=== PATIENT | female | born 1975 ===

== ENCOUNTER 2016-07-18 17:26 | Emergency (ER) | payer OTHER ==
[2016-07-18 17:26] VITALS: BMI 28.3
[2016-07-18 17:53] VITALS: TEMP 97.8
--- NOTE | 2016-07-18 18:51 | C.PDOC ---
History Of Present Illness A 40 year old female presents to the emergency room with right knee pain for 15 days. Patient reports that the pain started as she was walking down the stairs when she stepped incorrectly, shifting all of her weight to her right leg. Patient denies any other pain, injury/trauma, numbness, weakness, any sensory changes, or any other complaints. Time Seen by Provider: 07/18/16 18:11 Chief Complaint (Nursing): Lower Extremity Problem/Injury History Per: Patient History/Exam Limitations: no limitations Onset/Duration Of Symptoms: Days (15) Current Symptoms Are (Timing): Still Present Severity: Mild Recent travel outside of the [place]: No Past Medical History Reviewed: Historical Data, Nursing Documentation, Vital Signs Vital Signs: Last Vital Signs Temp 97.8 F 07/18/16 17:50 Pulse 74 07/18/16 17:50 Resp 20 07/18/16 17:50 BP 116/77 07/18/16 17:50 Pulse Ox 99 07/18/16 19:06 - Medical History PMH: Depression, HTN - [facility] Procedures INDIVID PSYCHOTHERAP NEC (09/22/13) OTHER GROUP THERAPY (09/22/13) Family History: States: Unknown Family Hx - Social History Hx Tobacco Use: No Hx Alcohol Use: No Hx Substance Use: No - Immunization History Hx Tetanus Toxoid Vaccination: No Hx Influenza Vaccination: No Hx Pneumococcal Vaccination: No Review Of Systems Except As Marked, All Systems Reviewed And Found Negative. Constitutional: Negative for: Fever, Chills Gastrointestinal: Negative for: Nausea, Vomiting, Diarrhea Musculoskeletal: Positive for: Other (Right knee pain) Neurological: Negative for: Weakness, Numbness Physical Exam - Physical Exam Appears: Well, Non-toxic Skin: Normal Color, Warm, Dry, No Rash Head: Atraumatic, Normacephalic Extremity: Normal ROM, Tenderness (Right knee lateral tenderness), No Pedal Edema, No Calf Tenderness, No Deformity, No Swelling Neurological/Psych: Oriented x3, Normal Speech, Normal Cognition, Normal Motor, Normal Sensation Gait: Steady ED Course And Treatment O2 Sat by Pulse Oximetry: 99 - Other Rad Right Knee X-ray X-Ray: Interpreted by Me, Viewed By Me Interpretation: As read by me, no fractures or dislocations. Progress Note: X-ray was negative. Patient's knee was placed in knee mobilizer and patient was given crutches. Patient given Motrin for pain. On reassessment, patient is resting comfortably, and is in no acute distress. Patient was instructed to follow up with Orthopedist in 1-2 days for further evaluation. Disposition - Disposition Referrals: Janette Overton MD [Staff Provider] - Disposition: HOME/ ROUTINE Disposition Time: 18:48 Condition: STABLE Additional Instructions: Follow up with Orthopedist within 1-2 days. Return to ED if feel worse. Prescriptions: Ibuprofen [Motrin Tab] 600 mg PO Q8 #30 tab Instructions: Knee Sprain (ED) Print Language: BENGALI - Clinical Impression Clinical Impression: Knee sprain - Scribe Statement The provider has reviewed the documentation as recorded by the Scribmarcus Carlson All medical record entries made by the Chikisibmarcus were at my direction and personally dictated by me. I have reviewed the chart and agree that the record accurately reflects my personal performance of the history, physical exam, medical decision making, and the department course for this patient. I have also personally directed, reviewed, and agree with the discharge instructions and disposition.
[2016-07-18 19:32] VITALS: BP 124/72; PULSE 75; RESP 18
--- NOTE | 2016-07-19 10:09 | RAD ---
PROCEDURE: Right Knee Radiographs. HISTORY: pain COMPARISON: None. FINDINGS: BONES: Normal. No fracture. JOINTS: Normal. No osteoarthritis. JOINT EFFUSION: None. OTHER FINDINGS: None. IMPRESSION: Normal radiographs of the right knee.
[2016-07-19 22:38] VITALS: O2SAT 99
== END 2016-07-18 19:33 | disposition home or self-care (01) ==
LOC: C.ER 17:26
DX: S83.91XA Sprain of unspecified site of right knee, initial encounter (principal); X58.XXXA Exposure to other specified factors, initial encounter

== ENCOUNTER 2017-04-29 14:39 | Emergency (ER) | payer OTHER ==
[2017-04-29 14:39] VITALS: BMI 28.3
--- NOTE | 2017-04-29 16:28 | C.PDOC ---
History Of Present Illness 41 y/o female presents to the ER complaining of subjective fever, headache, vomiting, and body aches for 3 days. Patient has had 3 episodes of vomiting as well as epigastric pain. Headache is rated as 10/10. No diarrhea, shortness of breath, or neck pain. Patient is afebrile upon arrival. Time Seen by Provider: 04/29/17 16:10 Chief Complaint (Nursing): Flu-like Symptoms History Per: Patient History/Exam Limitations: no limitations Onset/Duration Of Symptoms: Days (x3) Current Symptoms Are (Timing): Still Present Location Of Pain: Headache, Other (abdomen) Past Medical History Reviewed: Historical Data, Nursing Documentation, Vital Signs Vital Signs: Last Vital Signs Temp 98.1 F 04/29/17 15:18 Pulse 84 04/29/17 15:18 Resp 19 04/29/17 15:18 BP 119/77 04/29/17 15:18 Pulse Ox 99 04/29/17 16:37 - Medical History PMH: Depression, HTN - [facility] Procedures INDIVID PSYCHOTHERAP NEC (09/22/13) OTHER GROUP THERAPY (09/22/13) Family History: States: Unknown Family Hx - Social History Hx Tobacco Use: No Hx Alcohol Use: No Hx Substance Use: No - Immunization History Hx Tetanus Toxoid Vaccination: Yes Hx Influenza Vaccination: No Hx Pneumococcal Vaccination: No Review Of Systems Except As Marked, All Systems Reviewed And Found Negative. Constitutional: Positive for: Fever (subjective), Other (Body Aches) Respiratory: Negative for: Shortness of Breath Gastrointestinal: Positive for: Vomiting, Abdominal Pain (epigastric). Negative for: Diarrhea Musculoskeletal: Negative for: Neck Pain Neurological: Positive for: Headache Physical Exam - Physical Exam Appears: Non-toxic, No Acute Distress Skin: Normal Color, Warm, Dry Head: Atraumatic, Normacephalic Eye(s): bilateral: Normal Inspection, PERRL, EOMI Nose: Normal Oral Mucosa: Moist Throat: Normal, No Erythema, No Exudate Neck: Normal ROM, Supple Chest: Symmetrical, No Tenderness Cardiovascular: Rhythm Regular Respiratory: Normal Breath Sounds, No Accessory Muscle Use, No Wheezing Gastrointestinal/Abdominal: Soft, Tenderness (to epigastric area) Back: Normal Inspection, No Vertebral Tenderness Extremity: Bilateral: Atraumatic, Normal Color And Temperature, Normal ROM Neurological/Psych: Oriented x3, Normal Speech ED Course And Treatment O2 Sat by Pulse Oximetry: 99 (RA) Pulse Ox Interpretation: Normal Medical Decision Making Medical Decision Making: Initial Plan: * Tamiflu * Motrin Disposition Doctor Will See Patient In The: Hospital Counseled Patient/Family Regarding: Diagnosis, Need For Followup, Rx Given - Disposition Referrals: [facility] [Outside] Disposition: HOME/ ROUTINE Disposition Time: 17:13 Condition: GUARDED Prescriptions: Ibuprofen [Motrin] 600 mg PO TID #15 tab Oseltamivir [Tamiflu] 1 cap PO BID #10 cap Instructions: Influenza (ED) Forms: Gen Discharge Inst [place], [facility] ([place]), Work Excuse - POA Present On Arrival: None - Clinical Impression Clinical Impression: Influenza - Scribe Statement The provider has reviewed the documentation as recorded by the Nicholas Caceres Provider Attestation: All medical record entries made by the Chikisibmarcus were at my direction and personally dictated by me. I have reviewed the chart and agree that the record accurately reflects my personal performance of the history, physical exam, medical decision making, and the department course for this patient. I have also personally directed, reviewed, and agree with the discharge instructions and disposition.
[2017-04-29 18:09] VITALS: BP 122/77; PULSE 90; RESP 17; TEMP 98.4; O2SAT 100
--- NOTE | 2017-04-30 21:08 | CARD ---
APPROVED REPORT EKG Measurement Heart [id number] <Conclusion> Normal sinus rhythm with sinus arrhythmia Normal ECG
== END 2017-04-29 18:09 | disposition home or self-care (01) ==
LOC: C.ER 14:39
DX: J11.1 Influenza due to unidentified influenza virus with other respiratory manifestations (principal); I10 Essential (primary) hypertension

== ENCOUNTER 2017-09-18 09:54 | Emergency (ER) | payer OTHER ==
[2017-09-18 09:54] VITALS: BMI 28.3
[2017-09-18 10:07] VITALS: RESP 16; TEMP 98.2; O2SAT 99
--- NOTE | 2017-09-18 10:20 | C.PDOC ---
History Of Present Illness 41 yo female, presents with right upper back, right rib pain, right arm pain s/ p fall 3 days ago while cleaning. no head injury no loc. no other complaints. Time Seen by Provider: 09/18/17 10:12 Chief Complaint (Nursing): Back Pain Past Medical History Reviewed: Historical Data, Nursing Documentation, Vital Signs Vital Signs: Last Vital Signs Temp 98.2 F 09/18/17 10:05 Pulse 76 09/18/17 11:27 Resp 16 09/18/17 11:27 BP 128/72 09/18/17 11:27 Pulse Ox 99 09/18/17 11:27 - Medical History PMH: Depression, HTN - [facility] Procedures INDIVID PSYCHOTHERAP NEC (09/22/13) OTHER GROUP THERAPY (09/22/13) Family History: States: Unknown Family Hx - Social History Hx Tobacco Use: No Hx Alcohol Use: No Hx Substance Use: No - Immunization History Hx Tetanus Toxoid Vaccination: Yes Hx Influenza Vaccination: No Hx Pneumococcal Vaccination: No Review Of Systems Musculoskeletal: Positive for: Arm Pain, Other (right sided rib pain) Physical Exam - Physical Exam Appears: Well, No Acute Distress, Other (speaking full sentneces in nad. on phone) Chest: Tenderness (right sided ) Extremity: Tenderness (right arm), Swelling (right) ED Course And Treatment O2 Sat by Pulse Oximetry: 99 Medical Decision Making Medical Decision Making: xr neg. adivse outpt fu. Disposition - Disposition Referrals: [facility] [Outside] Janette Overton MD [Staff Provider] - Disposition: HOME/ ROUTINE Disposition Time: 11:00 Condition: STABLE Prescriptions: Naproxen [Naprosyn] 500 mg PO BID PRN #14 tab PRN Reason: Pain, Mild (1-3) Instructions: Shoulder Sprain, Wrist Sprain (DC), Preventing Falls, Bruised Rib (DC) Forms: [employer] (Setswana) Print Language: SYRIAC - Clinical Impression Clinical Impression: Rib contusion, Arm sprain
--- NOTE | 2017-09-18 11:19 | RAD ---
PROCEDURE: Chest radiograph dated 08/12/2015 HISTORY: fall COMPARISON: Chest radiograph dated 08/12/2015. TECHNIQUE: Frontal radiograph of the chest and multiple oblique radiographs of the right ribs were obtained. FINDINGS: RIGHT RIBS: No fracture or focal lesion visualized. LUNGS: Clear. PLEURA: No pneumothorax or pleural fluid. CARDIOVASCULAR: Normal sized heart. No pulmonary vascular congestion. OTHER FINDINGS: None. IMPRESSION: Unremarkable radiographs of the chest and right ribs. No right rib fracture.
--- NOTE | 2017-09-18 11:20 | RAD ---
PROCEDURE: Radiographs of the Right Forearm HISTORY: fall COMPARISON: None available. TECHNIQUE: Frontal and lateral views obtained. FINDINGS: BONES: No fracture or destructive lesion. JOINT SPACES: Unremarkable. OTHER FINDINGS: None. IMPRESSION: Unremarkable radiographs of the right forearm.
--- NOTE | 2017-09-18 11:20 | RAD ---
PROCEDURE: Radiographs of the Right Shoulder HISTORY: fall COMPARISON: No prior. FINDINGS: BONES: No acute fracture. JOINTS: Unremarkable. SOFT TISSUES: Normal. OTHER FINDINGS: None. IMPRESSION: No demonstrated fracture or dislocation.
--- NOTE | 2017-09-18 11:20 | RAD ---
PROCEDURE: Right Wrist Radiographs. HISTORY: fall COMPARISON: None. FINDINGS: BONES: No acute fracture. JOINTS: Unremarkable. SOFT TISSUES: Normal. OTHER FINDINGS: None. IMPRESSION: No demonstrated fracture or dislocation.
--- NOTE | 2017-09-18 11:21 | RAD ---
PROCEDURE: Radiographs of the right elbow. HISTORY: fall COMPARISON: No prior. FINDINGS: BONES: Normal. No fracture. JOINTS: Normal. No osteoarthritis. SOFT TISSUES: Normal. JOINT EFFUSION: None. OTHER FINDINGS: None. IMPRESSION: Unremarkable radiographs of the right elbow.
[2017-09-18 11:28] VITALS: BP 128/72; PULSE 76
== END 2017-09-18 11:27 | disposition home or self-care (01) ==
LOC: C.ER 09:54
DX: S20.211A Contusion of right front wall of thorax, initial encounter (principal); T14.8XXA Other injury of unspecified body region, initial encounter; W19.XXXA Unspecified fall, initial encounter

== ENCOUNTER 2017-10-17 12:04 | Emergency (ER) | payer OTHER ==
[2017-10-17 12:04] VITALS: BMI 28.3
[2017-10-17 12:15] VITALS: BP 116/73; PULSE 67; RESP 18; TEMP 98; O2SAT 100
[2017-10-17] MEDS ORDERED: Lidocaine 2% MPF (5 ml) Inj ONE (12:28)
--- NOTE | 2017-10-17 12:59 | C.PDOC ---
History Of Present Illness 41 y/o female presents to the ED for evaluation of a laceration to the left thumb, sustained just prior to arrival while cooking at home. States she accidentally cut the finger with a knife. Otherwise patient denies obvious deformity, weakness, or sensorivascular deficits. Time Seen by Provider: 10/17/17 12:17 Chief Complaint (Nursing): Abnormal Skin Integrity History Per: Patient History/Exam Limitations: no limitations Onset/Duration Of Symptoms: Mins Current Symptoms Are (Timing): Still Present Past Medical History Reviewed: Historical Data, Nursing Documentation, Vital Signs Vital Signs: Last Vital Signs Temp 98 F 10/17/17 12:13 Pulse 67 10/17/17 12:13 Resp 18 10/17/17 12:13 BP 116/73 10/17/17 12:13 Pulse Ox 100 10/17/17 13:04 - Medical History PMH: Depression, HTN - [facility] Procedures INDIVID PSYCHOTHERAP NEC (09/22/13) OTHER GROUP THERAPY (09/22/13) Family History: States: Unknown Family Hx - Social History Hx Tobacco Use: No Hx Alcohol Use: No Hx Substance Use: No - Immunization History Hx Tetanus Toxoid Vaccination: Yes Hx Influenza Vaccination: No Hx Pneumococcal Vaccination: No Review Of Systems Except As Marked, All Systems Reviewed And Found Negative. Skin: Positive for: Lesions (to left thumb). Negative for: Rash, Bruising Neurological: Negative for: Weakness, Numbness, Incoordination, Other (tingling) Physical Exam - Physical Exam Appears: Well, Non-toxic, No Acute Distress Skin: Normal Color, Warm, Other (left thumb: 2cm cutaneous L-shape laceration to left proximal 1st phalanx, mild bloody oozing from wound, no wound FB, no evidence of ligament or tendon injury. ) Extremity: Normal ROM (Left thumb), Capillary Refill (less than 2sec to Left thumb), No Deformity, No Swelling Pulses: Left Radial: Normal Neurological/Psych: Oriented x3, Normal Speech, Normal Motor, Normal Sensation, Normal Reflexes ED Course And Treatment O2 Sat by Pulse Oximetry: 100 (RA) Pulse Ox Interpretation: Normal Progress Note: On re-eval, pt is afebnrile, hemodynamicaly stable. NOn-toxic. Left thumb: laceration repaired with suture w/o difficulty, no evidence of tendon or ligament injury. FAROM, no neurovascular deficits. Pt advised on wound care. ref. to f/u with PMD in 2 days for wound check. Laceration - Laceration Repair Left thumb Wound Length (In cm): 2cm Description Of Wound: Irregular Wound Cleansed With: Betadine Anesthesia: Lidocaine 2% Wound Examination: Irrigated With Saline, No FB With Wound Exploration, No Tendon Injury With Wound Exploration Wound Closure: Suture (#4) Suture Technique And Material Used: Interrupted, Nylon (5-0) Wound Complexity: Simple Disposition Counseled Patient/Family Regarding: Diagnosis, Need For Followup - Disposition Referrals: [facility] [Outside] Disposition: HOME/ ROUTINE Disposition Time: 12:55 Condition: STABLE Additional Instructions: Light duty to injured finger Keep wound dry, avoid water exposure for 1 week Suture removal in 7-10 days Return to Ed at any time if any sign of infection. Instructions: Laceration Repair With Stitches (DC) Forms: [employer] (Estonian) - Clinical Impression Clinical Impression: Laceration of finger - PA / CONCR[employer]TER [employer]ISHER / Resident Statement MD/DO has reviewed & agrees with the documentation as recorded. - Scribe Statement The provider has reviewed the documentation as recorded by the Scribe (Raisa Caceres) All medical record entries made by the Scribe were at my direction and personally dictated by me. I have reviewed the chart and agree that the record accurately reflects my personal performance of the history, physical exam, medical decision making, and the department course for this patient. I have also personally directed, reviewed, and agree with the discharge instructions and disposition.
== END 2017-10-17 13:11 | disposition home or self-care (01) ==
LOC: C.ER 12:04
DX: S61.012A Laceration without foreign body of left thumb without damage to nail, initial encounter (principal); W26.0XXA Contact with knife, initial encounter; Y93.G3 Activity, cooking and baking; Y92.009 Unspecified place in unspecified non-institutional (private) residence as the place of occurrence of the external cause

== ENCOUNTER 2017-11-25 09:34 | Inpatient (IN) | payer MEDICAID, OTHER ==
[2017-11-25 09:34] VITALS: BMI 28.3
--- NOTE | 2017-11-25 10:36 | C.PDOC ---
History Of Present Illness 41-year-old female is brought to the ED by daughter for evaluation of bilateral trapezius muscles soreness and chronic depression and suicidal ideation. Patient has extensive psychiatric history, including overdoses. Patient denies recent trauma/injury, extremity numbness/weakness, homicidal ideation. Time Seen by Provider: 11/25/17 09:47 Chief Complaint (Nursing): Back Pain History Per: Patient, Family History/Exam Limitations: no limitations Onset/Duration Of Symptoms: Days Current Symptoms Are (Timing): Still Present Quality Of Discomfort: "Pain" Additional History Per: Patient Past Medical History Reviewed: Historical Data, Nursing Documentation, Vital Signs Vital Signs: Last Vital Signs Temp 98.7 F 11/25/17 13:02 Pulse 96 H 11/25/17 15:59 Resp 18 11/25/17 13:02 BP 106/70 11/25/17 15:59 Pulse Ox 100 11/25/17 12:01 - Medical History PMH: Depression, HTN Surgical History: No Surg Hx - [facility] Procedures INDIVID PSYCHOTHERAP NEC (09/22/13) OTHER GROUP THERAPY (09/22/13) Family History: States: Unknown Family Hx - Social History Hx Tobacco Use: No Hx Alcohol Use: No Hx Substance Use: No - Immunization History Hx Tetanus Toxoid Vaccination: Yes Hx Influenza Vaccination: No Hx Pneumococcal Vaccination: No Review Of Systems Musculoskeletal: Positive for: Other (bilateral trapezius muscle soreness ) Neurological: Negative for: Weakness, Numbness Psych: Positive for: Depression, Suicidal ideation. Negative for: Other ( homicidal ideation ) Physical Exam - Physical Exam Appears: Non-toxic, No Acute Distress, Other (obese female ) Skin: Normal Color, Warm, Dry Head: Atraumatic, Normacephalic Eye(s): bilateral: Normal Inspection Oral Mucosa: Moist Neck: Supple Chest: Symmetrical, No Deformity, No Tenderness Cardiovascular: Rhythm Regular Respiratory: Normal Breath Sounds, No Rales, No Rhonchi, No Wheezing Back: Other (bilateral trapezius tenderness ) Extremity: Normal ROM, Capillary Refill (less than 2 seconds ) Neurological/Psych: Other (flat affect ) Gait: Steady ED Course And Treatment - Laboratory Results Result Diagrams: 11/25/17 10:31 11/25/17 10:31 O2 Sat by Pulse Oximetry: 100 (on RA) Pulse Ox Interpretation: Normal Progress Note: Bloodwork and urinalysis ordered and reviewed. Motrin PO given. Case discussed with bushel worker, will evaluate the patient. Disposition Doctor Will See Patient In The: Hospital Counseled Patient/Family Regarding: Studies Performed, Diagnosis - Disposition Disposition: HOSPITALIZED Disposition Time: 12:00 Condition: GOOD - Clinical Impression Clinical Impression: Depression, Trapezius muscle strain - Scribe Statement The provider has reviewed the documentation as recorded by the Scribe (Lauren Easley) Provider Attestation: All medical record entries made by the Scribe were at my direction and personally dictated by me. I have reviewed the chart and agree that the record accurately reflects my personal performance of the history, physical exam, medical decision making, and the department course for this patient. I have also personally directed, reviewed, and agree with the discharge instructions and disposition.
[2017-11-25 10:41] LABS: BASO % 0.8 % (0.0-2.0); EOS % 0.6 % (0.0-4.0); LYMPH # 1.3 K/uL (1.0-4.3); LYMPH % 26.4 % (20.0-40.0); MEAN CORPUSCULAR HGB CONC 35.6 g/dL (33.0-37.0); MEAN PLATELET VOLUME 8.9 fL (7.2-11.7); MONO # 0.4 K/uL (0.0-0.8); MONO % 7.5 % (0.0-10.0); NEUT # 3.3 K/uL (1.8-7.0); NEUT % 64.7 % (50.0-75.0); NRBC % 0.3 % (0.0-2.0); RBC 4.97 Mil/uL (3.80-5.20); RED CELL DISTRIBUTION WIDTH 13.8 % (11.5-14.5); WHITE BLOOD COUNT 5.1 K/uL (4.8-10.8)
[2017-11-25 10:43] LABS: HCG,QUALITATIVE URINE NEGATIVE (NEGATIVE)
[2017-11-25 10:44] LABS: HEMOGLOBIN 14.4 g/dL (11.0-16.0); MEAN CELL VOLUME 81.3 fL (81.0-99.0)
[2017-11-25 10:50] LABS: SQUAMOUS EPITHIAL 8 /hpf (0-5); URINE BACTERIA RARE (<OCC); URINE BILIRUBIN NEGATIVE (NEGATIVE); URINE BLOOD NEGATIVE (NEGATIVE); URINE CLARITY Hazy (Clear); URINE COLOR Yellow (YELLOW); URINE GLUCOSE (UA) NORMAL (Normal); URINE LEUKOCYTE ESTERASE NEG Leu/uL (Negative); URINE PROTEIN NEGATIVE (NEGATIVE)
[2017-11-25 10:50] LABS: ALB/GLOB RATIO 1.4 (1.0-2.1); ALBUMIN 4.9 g/dL (3.5-5.0); ALT/SGPT 28 U/L (9-52); AST/SGOT 21 U/L (14-36); BLOOD UREA NITROGEN 13 mg/dL (7-17); CALCIUM 9.9 mg/dl (8.6-10.4); GFR NON-AFRICAN AMERICAN > 60
[2017-11-25 11:34] LABS: BARBITURATES, UR NEGATIVE (NEGATIVE); BENZODIAZEPINES, UR NEGATIVE (NEGATIVE); OPIATES, UR NEGATIVE (NEGATIVE); PHENCYCLIDINE, UR NEGATIVE (NEGATIVE)
--- NOTE | 2017-11-25 12:37 | PCM.PSYCH ---
<Janette Wesley - Last Filed: 11/25/17 12:37> Initial Psychiatric Evaluation - Initial Psychiatric Evaluation Type of Admission: Voluntary Legal Status: Capacity History of Present Illness and Precipitating Events: Pt is a 41 year old female presenting to [facility] with her daughter to seek help with worsening suicidal thoughts and depressive symptoms. Pt states she was diagnosed with depression "many years ago," and was prescribed medication following her only inpatient hospitalization at [facility] (2013), but cannot recall the name of the antidepressant and never followed-up with aftercare. When asked how she has been coping with her symptoms over the course of x4 years with no help, pt became tearfule and states that "I've just been suffering." Pt endorsing active S/I without a plan and cannot contract for safety. Pt verbalizing persistent fantasizing about her and suicide, but has not given away prized possessions. Pt is unable to provide a catalyst for the suicidal thoughts, but states they have been worsening for an unspecified amount of time. Pt reports overdosing in 2013 as a suicide attempt prior to her hospitalization, and one additional attempt via overdose that she did not seek help nor tell anyone about. Pt denies H/I; A/V/T hallucinations and history of same. Pt denies substance abuse and history of same. Pt denies trauma history. Pt denies medical issues. 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 Pt is AAOx3. Pt presents as unkempt but not malodorous or neglecting personal hygiene. Pt speech is soft in volume and slow in rate. Pt responses are monosyllabic in nature. Pt presents as hopeless and helpless. Pt mood presents as depressed with flat affect. Pt did not make eye contact for the duration of the evaluation. Pt behavior is tense. Pt presents with additional symptoms of anhedonia and weakness. Pt was provided with supportive counseling and assisted in identifying triggers/protective factors, and encouraged to follow up with aftercare/medication management. Pt would benefit from inpatient psychiatric admission due to the severity of her depressive symptoms requiring inpatient stabilization and medication management. [ End ] Past Psychiatric History - Past Psychiatric History Pertinent Medical Hx (Current Medical&Sleep Prob, Allergies): Allergies Allergy/AdvReac Type Severity Reaction Status Date / Time No Known Allergies Allergy Verified 11/25/17 09:38 Naproxen [Naprosyn] 500 mg PO BID PRN #14 tab 09/18/17 <GonzálezSharicassijulio cesar - Last Filed: 11/26/17 17:06> Initial Psychiatric Evaluation - Initial Psychiatric Evaluation Chief Complaint (in patient's own words): "I am depressed" History of Present Illness and Precipitating Events: Pt is a 41 year old female who is single and living with her two children, age 24 and 18. 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 Pt was brought in by her daughter to the ER yesterday due to suicidal ideation and depression. pt has a hx of suicide attempt through overdosing on medication 4 years ago and was hospitalized at [facility]. pt was given medication at [facility] but has not followed up since. pt cannot remember the name of the medication she was given. pt currently has symptoms of depressed mood, anhedonia, suicidal ideation. pt currently does not have a plan for suicide Pt denies manic episodes or feeling agitated. pt denies visual or auditory hallucinations, paranoia. Pt denies smoking cigarettes, heroine, cocaine, benzos, or any other drugs use. Psych Hx: Major Depressive Disorder Traumatic Hx: Unremarkable Family psych Hx: unremarkable Medical Hx: Unremarkable Legal Hx: unremarkable Pt's plan is have a long-term detox after this, but is unsure of the specifics Current Medications: Active Medications Generic Name Dose Route Start Last Admin Trade Name Freq PRN Reason Stop Dose Admin Aripiprazole 5 mg 11/26/17 22:00 Abilify PO HS PARMJIT Diphenhydramine HCl 50 mg 11/25/17 12:37 Benadryl PO Q6 PRN Extra Pyramidal Symptoms Hydroxyzine HCl 25 mg 11/25/17 12:37 11/26/17 11:18 Atarax PO 25 mg Q6 PRN Administration Anxiety Paroxetine HCl 20 mg 11/25/17 12:45 11/26/17 10:47 Paxil PO 20 mg DAILY PARMJIT Administration Pneumococcal Polyvalent Vaccine 0.5 ml 11/28/17 10:00 Pneumovax 23 Vaccine IM 11/28/17 10:01 .ONCE ONE Trazodone HCl 50 mg 11/25/17 22:00 11/25/17 21:13 Desyrel PO 50 mg HS PARMJIT Administration Past Psychiatric History - Past Psychiatric History Pertinent Medical Hx (Current Medical&Sleep Prob, Allergies): Allergies Allergy/AdvReac Type Severity Reaction Status Date / Time No Known Allergies Allergy Verified 11/25/17 09:38 Naproxen [Naprosyn] 500 mg PO BID PRN #14 tab 09/18/17 Review of Systems - Psychiatric Psychiatric: Anhedonia, Depression, Difficulty Concentrating, Suicidal Ideation. absent: Auditory Hallucinations, Confusion, Hallucinations, Homicidal Ideation, Paranoia Mental Status Examination - Personal Presentation Personal Presentation: Looks stated age - Affect Affect: Flat - Motor Activity Motor Activity: Calm - Reliability in Providing Information Reliability in Providing Information: Good - Speech Speech: Relevant - Mood Mood: Depressed, Anxious - Obsessions/Compulsions Obsessions: No Compulsions: No - Cognitive Functions Orientation: Person, Place, Situation, Time Sensorium: Alert DSM 5 DX - DSM 5 DSM 5 Diagnosis: Major Depressive Disorder, simple, moderate - Recommended/Plan of Treatment Treatment Recommendations and Plan of Treatment: Paxil 20mg for Major Depressive Disorder Atarax 25mg for Anxiety Trazadone 50mg for Insomia As need medications All risks, benefits and alternatives of the meds discussed, and the pt agreed and understood. Attend groups and activities Individual therapy daily Psychoeducation and support daily Encourage compliance with meds and after care Refer to outpatient program Teach healthy lifestyle methods, i.e. diet, exercise, meditation
--- NOTE | 2017-11-25 12:42 | PCM.BM ---
<Thelma Richtre - Last Filed: 11/25/17 12:41> Treatment Plan Problems - Problems identified on initial assessmt Depression Date Initiated: 11/25/17 Time Initiated: 12:41 Assessment reference: NA Status: Active Suicidal Ideation Date Initiated: 11/25/17 Time Initiated: 12:41 Assessment reference: NA Status: Active Treatment assets and liabiliti Patient Assests: adapts well, cooperative, ADL independent, physically healthy, negotiates basic needs, cognitively intact Patient Liabilities: live alone (Lives with daughter and son), physical pain ( Back pain), financial problems, substance abuse (None), medical problems (None) - Milieu Protocol Maintain good personal hygiene: daily Encourage regular showers, daily Remind patient to perform daily oral care, daily Assist patient to perform ADL's (Self) Conduct patient checks and document Observation sheet: Q15 minutes (Safety) Maintain personal safety: every shift Educate patient to report safety concerns to staff, every shift Monitor environment for contraband/sharps Medication safety: Monitor for expected outcome, potential side effects: every shift, Assess barriers to learning: every shift, Assess readiness for medication education: every shift <Idalmis Staley - Last Filed: 11/26/17 14:14> Family Contact Family involvement: Family/SO is involved Family contact: Patient declines to allow family contact at present - Goals for Treatment Patient goals for treatment: "I need the right medication." Discharge/Continuing Care - Education Needs Education Needs: Patient Medication, Patient Coping Skills - Discharge Discharge Criteria: Tolerates medication w/o severe side effects, Reduction of target symptoms Discharge to:: Home, With Family - Treatment Team Participation Discussed with Family/SO: No Was Patient/Family/SO present at Treatment Team Meeting: Yes <Kalani Claudio - Last Filed: 11/27/17 00:14> - Diagnosis (1) Severe major depression, single episode, with psychotic features Status: Acute Interventions: 11/27/17 00:14 * Assess 7x/week regarding severity of withdrawal * Educate regarding risks, benefits, side effects and alternatives of medications * Use Motivational Interviewing for abstinence * Use CBT for relapse prevention * Medication management for withdrawal symptoms * Encourage medication assisted treatment *
--- NOTE | 2017-11-27 00:15 | PCM.PYCHPN ---
Psychiatric Progress Note - Psychiatric Progress Note Patient seen today, length of contact: 18 min Patient Chief Complaint: "I am depressed" Problems Identified/Issues Discussed: The pt is seen, chart reviewed, case discussed with staff. The pt is compliant with medications and reports no side-effects. Symptoms are improving but needs more time to stabilize. Seen with our Amharic-speaking SW today Pt attends groups and activities. Support given, psycho-education provided. After care discussed. Family meeting to be arranged with children soon Medication Change: Yes Medical Record Reviewed: Yes Mental Status Examination - Cognitive Function Orientation: Person, Place, Situation, Time Memory: Impaired Attention: Poor Concentration: Poor Association: WNL Fund of Knowledge: Poor - Mood Mood: Depressed, Anxious - Affect Affect: Blunted - Speech Speech: Appropriate, Soft - Formal Thought Process Formal Thought Process: No Impairment - Suicidal Ideation Suicidal Ideation: No - Homicidal Ideation Homicidal Ideation: No Goal/Treatment Plan - Goal/Treatment Plan Need for Continued Stay: Discharge may exacerbated symptoms, Severe functional impairment Progress Toward Problem(s) and Goals/Treatment Plan: Paxil 20mg for Major Depressive Disorder Abilify for psychotic sxs Atarax 25mg for Anxiety Trazodone 50mg for Insomia As need medications All risks, benefits and alternatives of the meds discussed, and the pt agreed and understood. Attend groups and activities Individual therapy daily Psychoeducation and support daily Encourage compliance with meds and after care Refer to outpatient program Teach healthy lifestyle methods, i.e. diet, exercise, meditation Estimated Date of D/C: 11/30/17
--- NOTE | 2017-11-27 10:11 | PCM.PYCHPN ---
Psychiatric Progress Note - Psychiatric Progress Note Patient seen today, length of contact: 17min Patient Chief Complaint: "I am tired" Problems Identified/Issues Discussed: The pt is seen, chart reviewed, case discussed with staff. Seen with Dominican-speaking staff Support and psychoeducation given No new symptoms reported, improving slowly and needs more time Still in bed a lot, isolated, depressed, very anxious No SEs from medications, risks discussed. After care discussed - likely [facility] Family meeting to be arranged with children on [place] Medication Change: Yes (adjust meds) Medical Record Reviewed: Yes Mental Status Examination - Cognitive Function Orientation: Person, Place, Situation, Time Memory: Impaired Attention: Poor Concentration: Poor Association: WNL Fund of Knowledge: Poor - Mood Mood: Depressed, Anxious - Affect Affect: Blunted - Speech Speech: Appropriate, Soft - Formal Thought Process Formal Thought Process: No Impairment - Suicidal Ideation Suicidal Ideation: No - Homicidal Ideation Homicidal Ideation: No Goal/Treatment Plan - Goal/Treatment Plan Need for Continued Stay: Discharge may exacerbated symptoms, Severe functional impairment Progress Toward Problem(s) and Goals/Treatment Plan: Paxil 20mg for Major Depressive Disorder is switched to Prozac Abilify for psychotic sxs Atarax 25mg for Anxiety Trazodone 50mg for insonmia As need medications All risks, benefits and alternatives of the meds discussed, and the pt agreed and understood. Attend groups and activities Individual therapy daily Psychoeducation and support daily Encourage compliance with meds and after care Refer to outpatient program Teach healthy lifestyle methods, i.e. diet, exercise, meditation Estimated Date of D/C: 11/30/17
[2017-11-28] MEDS ORDERED: Pneumococcal 23-Valent Vaccine IM ONE (10:00)
--- NOTE | 2017-11-28 15:59 | PCM.PYCHPN ---
Psychiatric Progress Note - Psychiatric Progress Note Patient seen today, length of contact: 15 min Patient Chief Complaint: "I have a headache" Problems Identified/Issues Discussed: The pt is seen with Divehi-speaking ROBERT, chart reviewed, case discussed with staff. The pt is compliant with medications and reports no side-effects. Symptoms are improving but needs more time to stabilize. She is still hearing a voice telling her to hurt self She is not acutely suicidal but depressed, isolated and has vague SI Contract for safety Support given, psycho-education provided. After care discussed - daughter coming tomorrow Medication Change: Yes (adjust meds) Medical Record Reviewed: Yes Mental Status Examination - Cognitive Function Orientation: Person, Place, Situation, Time Memory: Impaired Attention: Poor Concentration: Poor Association: WNL Fund of Knowledge: Poor - Mood Mood: Depressed, Anxious - Affect Affect: Blunted - Speech Speech: Appropriate, Soft - Formal Thought Process Formal Thought Process: No Impairment - Suicidal Ideation Suicidal Ideation: No - Homicidal Ideation Homicidal Ideation: No Goal/Treatment Plan - Goal/Treatment Plan Need for Continued Stay: Discharge may exacerbated symptoms, Severe functional impairment Progress Toward Problem(s) and Goals/Treatment Plan: Prozac for depression Abilify for psychotic sxs Atarax 25mg for Anxiety Trazodone 50mg for insonmia As need medications All risks, benefits and alternatives of the meds discussed, and the pt agreed and understood. Attend groups and activities Individual therapy daily Psychoeducation and support daily Encourage compliance with meds and after care Refer to outpatient program Teach healthy lifestyle methods, i.e. diet, exercise, meditation Estimated Date of D/C: 11/30/17
--- NOTE | 2017-11-29 16:34 | PCM.PYCHPN ---
Psychiatric Progress Note - Psychiatric Progress Note Patient seen today, length of contact: 15 min Patient Chief Complaint: "I have a headache" Problems Identified/Issues Discussed: The pt is seen with Romanian-speaking ROBERT, chart reviewed, case discussed with staff. The pt is compliant with medications and reports no side-effects. Symptoms are improving but needs more time to stabilize. She is still hearing a voice telling her to hurt self She is not acutely suicidal but depressed, isolated and has vague SI Contract for safety Support given, psycho-education provided. After care discussed - Met with daughter today who said she will make sure pt goes to therapy and takes medications once discharged Medication Change: Yes (dose increased) Medical Record Reviewed: Yes Mental Status Examination - Cognitive Function Orientation: Person, Place, Situation, Time Memory: Impaired Attention: Poor Concentration: Poor Association: WNL Fund of Knowledge: Poor - Mood Mood: Depressed, Anxious - Affect Affect: Blunted - Speech Speech: Appropriate, Soft - Formal Thought Process Formal Thought Process: No Impairment - Suicidal Ideation Suicidal Ideation: No - Homicidal Ideation Homicidal Ideation: No Goal/Treatment Plan - Goal/Treatment Plan Need for Continued Stay: Discharge may exacerbated symptoms, Severe functional impairment Progress Toward Problem(s) and Goals/Treatment Plan: Prozac for depression Abilify for psychotic sxs Atarax 25mg for Anxiety Trazodone 50mg for insonmia As need medications All risks, benefits and alternatives of the meds discussed, and the pt agreed and understood. Attend groups and activities Individual therapy daily Psychoeducation and support daily Encourage compliance with meds and after care Refer to outpatient program Teach healthy lifestyle methods, i.e. diet, exercise, meditation Estimated Date of D/C: 11/30/17
[2017-11-30] MEDS ORDERED: Aluminum Hydroxide/Magnesium Hydroxide Susp (30 mL) PO PRN (12:22)
[2017-11-30] MEDS: Pantoprazole 20 mg EC Tab PO SCH (12:44)
--- NOTE | 2017-11-30 16:48 | PCM.PYCHPN ---
Psychiatric Progress Note - Psychiatric Progress Note Patient seen today, length of contact: 17 min Patient Chief Complaint: "I feel better" Problems Identified/Issues Discussed: The pt is seen with Arabic-speaking ROBERT, chart reviewed, case discussed with staff. The pt is compliant with medications and reports no side-effects. Symptoms are improving but needs more time to stabilize. She is not acutely suicidal and pt states she feels happier than past few days. Contract for safety Support given, psycho-education provided. After care discussed Medication Change: Yes (dose increased) Medical Record Reviewed: Yes Mental Status Examination - Cognitive Function Orientation: Person, Place, Situation, Time Memory: Impaired Attention: Poor Concentration: Poor Association: WNL Fund of Knowledge: Poor - Mood Mood: Depressed, Anxious - Affect Affect: Blunted - Speech Speech: Appropriate, Soft - Formal Thought Process Formal Thought Process: No Impairment - Suicidal Ideation Suicidal Ideation: No - Homicidal Ideation Homicidal Ideation: No Goal/Treatment Plan - Goal/Treatment Plan Need for Continued Stay: Discharge may exacerbated symptoms, Severe functional impairment Progress Toward Problem(s) and Goals/Treatment Plan: Prozac for depression Abilify for psychotic sxs Atarax 25mg for Anxiety Trazodone 50mg for insonmia As need medications All risks, benefits and alternatives of the meds discussed, and the pt agreed and understood. Attend groups and activities Individual therapy daily Psychoeducation and support daily Encourage compliance with meds and after care Refer to outpatient program Teach healthy lifestyle methods, i.e. diet, exercise, meditation Estimated Date of D/C: 11/30/17
[2017-12-01] MEDS: Pantoprazole 20 mg EC Tab PO SCH (11:11)
[2017-12-01] MEDS ORDERED: Pantoprazole 20 mg EC Tab PO SCH (12:00)
--- NOTE | 2017-12-01 16:56 | PCM.PYCHPN ---
Psychiatric Progress Note - Psychiatric Progress Note Patient seen today, length of contact: 17 min Patient Chief Complaint: "My stomach hurts" Problems Identified/Issues Discussed: The pt is seen, chart reviewed, case discussed with staff. The pt is compliant with medications and reports no side-effects. Prozac decreased in case it is causing her stomach ache Symptoms are improving but needs more time to stabilize. Pt attends groups and activities. Support given, psycho-education provided. After care discussed. Will go to [facility] Medication Change: Yes (Prozac is now 20 mg) Medical Record Reviewed: Yes Mental Status Examination - Cognitive Function Orientation: Person, Place, Situation, Time Memory: Impaired Attention: Poor Concentration: Poor Association: WNL Fund of Knowledge: Poor - Mood Mood: Depressed, Anxious - Affect Affect: Blunted - Speech Speech: Appropriate, Soft - Formal Thought Process Formal Thought Process: No Impairment - Suicidal Ideation Suicidal Ideation: No - Homicidal Ideation Homicidal Ideation: No Goal/Treatment Plan - Goal/Treatment Plan Need for Continued Stay: Discharge may exacerbated symptoms, Severe functional impairment Progress Toward Problem(s) and Goals/Treatment Plan: Prozac for depression Abilify for psychotic sxs Atarax 25mg for Anxiety Trazodone 50mg for insonmia As need medications All risks, benefits and alternatives of the meds discussed, and the pt agreed and understood. Attend groups and activities Individual therapy daily Psychoeducation and support daily Encourage compliance with meds and after care Refer to outpatient program Teach healthy lifestyle methods, i.e. diet, exercise, meditation Estimated Date of D/C: 11/30/17
[2017-12-02 06:39] VITALS: O2SAT 98
[2017-12-02] MEDS: Pantoprazole 40 mg EC Tab PO SCH (09:56)
--- NOTE | 2017-12-02 10:10 | PCM.PYCHPN ---
Psychiatric Progress Note - Psychiatric Progress Note Patient seen today, length of contact: 17 min Medication Change: Yes (dose increased) Medical Record Reviewed: Yes Mental Status Examination - Cognitive Function Orientation: Person, Place, Situation, Time Memory: Impaired Attention: Poor Concentration: Poor Association: WNL Fund of Knowledge: Poor - Mood Mood: Depressed, Anxious - Affect Affect: Blunted - Speech Speech: Appropriate, Soft - Formal Thought Process Formal Thought Process: No Impairment - Suicidal Ideation Suicidal Ideation: No - Homicidal Ideation Homicidal Ideation: No Goal/Treatment Plan - Goal/Treatment Plan Need for Continued Stay: Discharge may exacerbated symptoms, Severe functional impairment Estimated Date of D/C: 11/30/17
[2017-12-03 06:10] VITALS: RESP 20; TEMP 98
[2017-12-03 08:56] VITALS: BP 121/85; PULSE 78
[2017-12-03] MEDS: Pantoprazole 40 mg EC Tab PO SCH (09:50)
--- NOTE | 2017-12-03 09:54 | PCM.PYCHDC ---
Mental Status Examination - Mental Status Examination Orientation: Person Discharge Summary - Discharge Note Consultations:: List each consultation separately and include: 1. Reason for request. 2. Findings. 3. Follow-up Summary of Hospital Course include:: 1. Description of specific treatment plan utilized for patients during their course of treatmen. 2. Summarize the time- course for resolution of acute symptoms and/or regressed behaviors. 3. Describe issues identified and worked on during hospitalization. 4. Describe medication utilized. 5. Describe medical problems identified and treated. 6. Reassessment of suicide risk Summary of Hospital Course: Pt is a 41 year old female who is single and living with her two children, age 24 and 18. 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 Pt was brought in by her daughter to the ER yesterday due to suicidal ideation and depression. pt has a hx of suicide attempt through overdosing on medication 4 years ago and was hospitalized at [facility]. pt was given medication at [facility] but has not followed up since. pt cannot remember the name of the medication she was given. pt currently has symptoms of depressed mood, anhedonia, suicidal ideation. pt currently does not have a plan for suicide Pt denies manic episodes or feeling agitated. pt denies visual or auditory hallucinations, paranoia. Pt denies smoking cigarettes, heroine, cocaine, benzos, or any other drugs use. Psych Hx: Major Depressive Disorder Traumatic Hx: Unremarkable Family psych Hx: unremarkable Medical Hx: Unremarkable Legal Hx: unremarkable Pt's plan is have a long-term detox after this, but is unsure of the specifics She will attend [facility]. - Diagnosis (1) Severe major depression, single episode, with psychotic features Current Visit: Yes Status: Acute - Final Diagnosis (DSM 5) Condition upon Discharge: GOOD Disposition: HOME/ ROUTINE Follow-up Treatment Plan: Prozac for depression Abilify for psychotic sxs Atarax 25mg for Anxiety Trazodone 50mg for insonmia As need medications All risks, benefits and alternatives of the meds discussed, and the pt agreed and understood. Attend groups and activities Individual therapy daily Psychoeducation and support daily Encourage compliance with meds and after care Refer to outpatient program Teach healthy lifestyle methods, i.e. diet, exercise, meditation Prescriptions/Medication Reconciliation: ARIPiprazole [Abilify] 10 mg PO HS #30 tab FLUoxetine [Prozac] 20 mg PO DAILY #30 cap Pantoprazole [Protonix EC Tab] 40 mg PO DAILY #30 ect traZODone [Desyrel] 100 mg PO HS #30 tab
== END 2017-12-03 12:00 | disposition home or self-care (01) | DRG 430 ==
LOC: C.ER 09:34 → C.5E 11:34
PROVIDERS: ADMIT Psychiatry & Neurology Psychiatry; ATTEND Psychiatry & Neurology Psychiatry
PROC: GZ3ZZZZ Medication Management (ICD-10-PCS; principal; 2017-11-25)
PROC: GZHZZZZ Group Psychotherapy (ICD-10-PCS; 2017-11-25)
PROC: GZ56ZZZ Individual Psychotherapy, Supportive (ICD-10-PCS; 2017-11-25)
DX: F32.3 Major depressive disorder, single episode, severe with psychotic features (principal); R45.851 Suicidal ideations; F41.9 Anxiety disorder, unspecified; S29.012A Strain of muscle and tendon of back wall of thorax, initial encounter; I10 Essential (primary) hypertension; X50.9XXA Other and unspecified overexertion or strenuous movements or postures, initial encounter; Z91.5 Personal history of self-harm

== ENCOUNTER 2017-12-13 07:33 | Emergency (ER) | payer MEDICAID ==
[2017-12-13 07:33] VITALS: BMI 28.3
[2017-12-13 07:44] VITALS: O2SAT 100
[2017-12-13 08:17] LABS: SQUAMOUS EPITHIAL 4 /hpf (0-5); URINE BILIRUBIN NEGATIVE (NEGATIVE); URINE BLOOD NEGATIVE (NEGATIVE); URINE CLARITY Clear (Clear); URINE COLOR Yellow (YELLOW); URINE GLUCOSE (UA) NORMAL (Normal); URINE LEUKOCYTE ESTERASE NEG Leu/uL (Negative); URINE PROTEIN NEGATIVE (NEGATIVE)
[2017-12-13 08:30] LABS: HCG,QUALITATIVE URINE NEGATIVE (NEGATIVE)
--- NOTE | 2017-12-13 08:56 | C.PDOC ---
History Of Present Illness 41-year-old female, presents to the emergency department with complaints of lower abdominal pain ongoing since yesterday. Pain is rated 6/10, it is diffuse and crampy in nature. Patient states she has a hx of constipation. She notes having sex with one partner, without protection. Patient denies any fever, chills, vaginal bleeding, discharge, urinary symptoms, nausea/vomiting, or any other associated symptoms. No other complaints at this time. Time Seen by Provider: 12/13/17 07:34 Chief Complaint (Nursing): Abdominal Pain History Per: Patient History/Exam Limitations: no limitations Onset/Duration Of Symptoms: Days Current Symptoms Are (Timing): Still Present Past Medical History Reviewed: Historical Data, Nursing Documentation, Vital Signs Vital Signs: Last Vital Signs Temp 98.5 F 12/13/17 07:38 Pulse 86 12/13/17 07:38 Resp 16 12/13/17 07:38 BP 135/88 12/13/17 07:38 Pulse Ox 100 12/13/17 07:38 - Medical History PMH: Depression, HTN - [facility] Procedures GROUP PSYCHOTHERAPY (11/25/17) INDIVID PSYCHOTHERAP NEC (09/22/13) INDIVIDUAL PSYCHOTHERAPY, SUPPORTIVE (11/25/17) MEDICATION MANAGEMENT (11/25/17) OTHER GROUP THERAPY (09/22/13) Family History: States: No Known Family Hx - Social History Hx Tobacco Use: No Hx Alcohol Use: No Hx Substance Use: No - Immunization History Hx Tetanus Toxoid Vaccination: Yes Hx Influenza Vaccination: No Hx Pneumococcal Vaccination: No Review Of Systems Constitutional: Negative for: Fever, Chills Cardiovascular: Negative for: Chest Pain Respiratory: Negative for: Hemoptysis Gastrointestinal: Positive for: Abdominal Pain. Negative for: Nausea, Vomiting Musculoskeletal: Negative for: Back Pain Physical Exam - Physical Exam Appears: Non-toxic, No Acute Distress Skin: Normal Color, Warm, Dry, No Rash Head: Atraumatic, Normacephalic Eye(s): bilateral: Normal Inspection Nose: Normal Oral Mucosa: Moist Lips: Normal Appearing Neck: Normal ROM Chest: Symmetrical Cardiovascular: Rhythm Regular, No Murmur Respiratory: Normal Breath Sounds, No Accessory Muscle Use Gastrointestinal/Abdominal: Soft, Tenderness (diffuse), No Guarding, No Rebound Pelvic: No Vaginal Bleeding, No Vaginal Discharge, Cervical Motion Tenderness (mild), No Mass Extremity: Normal ROM, No Deformity Neurological/Psych: Oriented x3, Normal Speech ED Course And Treatment O2 Sat by Pulse Oximetry: 100 Pulse Ox Interpretation: Normal (RA) Medical Decision Making Medical Decision Making: Plan: * Motrin * XR Flat plat * UA/HCG * Reassess and Disposition Disposition Counseled Patient/Family Regarding: Studies Performed, Diagnosis, Need For Followup, Rx Given - Disposition Disposition: HOME/ ROUTINE Disposition Time: 09:24 Prescriptions: Polyethylene Glycol 3350 [Miralax] 17 gm PO DAILY PRN #340 gm PRN Reason: Constipation Wheat Dextrin [Benefiber] 1 each PO DAILY #20 powd.pack Instructions: High Fiber Diet, Constipation, Adult (DC) Forms: [employer] [facility] (Danish), Gen Discharge Inst Danish - POA Present On Arrival: None - Clinical Impression Clinical Impression: Constipation, Abdominal pain - Scribe Statement The provider has reviewed the documentation as recorded by the Scribe (Aurelia Overton) Provider Attestation: All medical record entries made by the Scribe were at my direction and personally dictated by me. I have reviewed the chart and agree that the record accurately reflects my personal performance of the history, physical exam, medical decision making, and the department course for this patient. I have also personally directed, reviewed, and agree with the discharge instructions and disposition.
--- NOTE | 2017-12-13 08:59 | RAD ---
Date of service: 12/13/2017 HISTORY: lower abdominal pain COMPARISON: No prior. FINDINGS: BOWEL: Moderate Stool retention. BONES: No destructive lesions noted. OTHER FINDINGS: None. IMPRESSION: No bowel obstruction. Stool retention
[2017-12-13 09:23] VITALS: BP 133/84; PULSE 63; RESP 17; TEMP 98.3
== END 2017-12-13 09:41 | disposition home or self-care (01) ==
LOC: C.ER 07:33
DX: K59.00 Constipation, unspecified (principal); R10.30 Lower abdominal pain, unspecified

== ENCOUNTER 2018-03-06 19:26 | Emergency (ER) | payer MEDICAID, OTHER ==
[2018-03-06 19:27] VITALS: BMI 28.3
[2018-03-06 19:39] VITALS: RESP 20
--- NOTE | 2018-03-06 20:05 | C.PDOC ---
History Of Present Illness 42 year old female presents to the ER with a complaint of left lateral chest wall and posterior back pain for the past 3 days. Patient states the pain is worsened with movement. Denies diaphoresis or lightheadedness. Chief Complaint (Nursing): Chest Pain History Per: Patient History/Exam Limitations: no limitations Onset/Duration Of Symptoms: Days (3) Current Symptoms Are (Timing): Still Present Associated Symptoms: denies: Diaphoresis, Other (lightheadedness) Exacerbating Factors: Movement Alleviating Factors: None Recent travel outside of the [place]: No Past Medical History Reviewed: Historical Data, Nursing Documentation, Vital Signs Vital Signs: Last Vital Signs Temp 97.5 F L 03/06/18 19:34 Pulse 75 03/06/18 19:34 Resp 20 03/06/18 19:34 BP 123/77 03/06/18 19:34 Pulse Ox 98 03/06/18 19:34 - Medical History PMH: Depression, HTN - [facility] Procedures GROUP PSYCHOTHERAPY (11/25/17) INDIVID PSYCHOTHERAP NEC (09/22/13) INDIVIDUAL PSYCHOTHERAPY, SUPPORTIVE (11/25/17) MEDICATION MANAGEMENT (11/25/17) OTHER GROUP THERAPY (09/22/13) Family History: States: Unknown Family Hx - Social History Hx Tobacco Use: No Hx Alcohol Use: No Hx Substance Use: No - Immunization History Hx Tetanus Toxoid Vaccination: Yes Hx Influenza Vaccination: No Hx Pneumococcal Vaccination: No Review Of Systems Constitutional: Negative for: Fever, Chills, Sweats Cardiovascular: Negative for: Palpitations, Light Headedness Respiratory: Negative for: Cough, Shortness of Breath Gastrointestinal: Negative for: Nausea, Vomiting Musculoskeletal: Positive for: Other (Chest wall pain and posterior back pain) Neurological: Negative for: Weakness, Numbness, Dizziness Physical Exam - Physical Exam Appears: Non-toxic Skin: Normal Color, Warm, Dry Head: Atraumatic, Normacephalic Eye(s): bilateral: Normal Inspection Oral Mucosa: Moist Neck: Normal, No Midline Cervical Tenderness, No Paracervical Tenderness, Supple Chest: Symmetrical, Tenderness (Left anterior) Cardiovascular: Rhythm Regular Respiratory: Normal Breath Sounds, No Rales, No Rhonchi, No Wheezing Gastrointestinal/Abdominal: Soft, No Tenderness Extremity: Normal ROM (x4), Tenderness (Right shoulder area), Capillary Refill (<2 seconds), No Deformity, No Swelling Pulses: Left Radial: Normal, Right Radial: Normal Neurological/Psych: Oriented x3, Normal Speech, Normal Motor, Normal Sensation ED Course And Treatment - Laboratory Results Result Diagrams: 03/06/18 20:02 03/06/18 20:02 O2 Sat by Pulse Oximetry: 98 (room air) Pulse Ox Interpretation: Normal Progress Note: EKG, blood work, CXR, and urinalysis ordered. Disposition Counseled Patient/Family Regarding: Diagnosis - Disposition Referrals: [facility] at [facility] [Outside] Disposition: HOME/ ROUTINE Disposition Time: 22:24 Condition: STABLE Prescriptions: Cyclobenzaprine [Cyclobenzaprine HCl] 10 mg PO TID #20 tab Naproxen 375 mg PO TIDPC #20 tablet Instructions: Muscle and Bone Pain (DC), Costochondritis (DC) Forms: [facility] (Romansh), Gen Discharge Inst Sri Lankan Print Language: ENGLISH - POA Present On Arrival: None - Clinical Impression Clinical Impression: Chest wall pain - Scribe Statement The provider has reviewed the documentation as recorded by the Scribmarcus Watson All medical record entries made by the Scribe were at my direction and personally dictated by me. I have reviewed the chart and agree that the record accurately reflects my personal performance of the history, physical exam, medical decision making, and the department course for this patient. I have also personally directed, reviewed, and agree with the discharge instructions and disposition.
[2018-03-06 20:08] LABS: BASO % 0.5 % (0.0-2.0); EOS # 0.1 K/uL (0.0-0.7); EOS % 1.4 % (0.0-4.0); LYMPH # 2.1 K/uL (1.0-4.3); LYMPH % 29.9 % (20.0-40.0); MEAN CELL VOLUME 81.6 fL (81.0-99.0); MEAN CORPUSCULAR HEMOGLOBIN 28.2 pg (27.0-31.0); MEAN CORPUSCULAR HGB CONC 34.5 g/dL (33.0-37.0); MEAN PLATELET VOLUME 8.4 fL (7.2-11.7); MONO # 0.6 K/uL (0.0-0.8); MONO % 8.1 % (0.0-10.0); NEUT # 4.3 K/uL (1.8-7.0); NEUT % 60.1 % (50.0-75.0); RBC 4.36 Mil/uL (3.80-5.20); RED CELL DISTRIBUTION WIDTH 13.6 % (11.5-14.5); WHITE BLOOD COUNT 7.1 K/uL (4.8-10.8)
[2018-03-06 20:22] LABS: ALB/GLOB RATIO 1.3 (1.0-2.1); ALBUMIN 4.2 g/dL (3.5-5.0); ALT/SGPT 34 U/L (9-52); AST/SGOT 28 U/L (14-36); BLOOD UREA NITROGEN 17 mg/dL (7-17); CALCIUM 9.1 mg/dl (8.6-10.4); GFR NON-AFRICAN AMERICAN > 60
[2018-03-06 20:36] LABS: SQUAMOUS EPITHIAL 3 /hpf (0-5); URINE BACTERIA RARE (<OCC); URINE BILIRUBIN NEGATIVE (NEGATIVE); URINE BLOOD NEGATIVE (NEGATIVE); URINE CLARITY Clear (Clear); URINE COLOR Yellow (YELLOW); URINE GLUCOSE (UA) NORMAL (Normal); URINE LEUKOCYTE ESTERASE NEG Leu/uL (Negative); URINE PROTEIN NEGATIVE (NEGATIVE)
[2018-03-06 20:36] LABS: HEMOGLOBIN 12.3 g/dL (11.0-16.0)
[2018-03-06 20:40] LABS: HCG,QUALITATIVE URINE NEGATIVE (NEGATIVE)
[2018-03-06 22:23] VITALS: BP 104/58; PULSE 76
[2018-03-06 22:27] VITALS: O2SAT 98
[2018-03-06 22:45] VITALS: TEMP 97.6
--- NOTE | 2018-03-07 09:17 | RAD ---
Date of service: 03/06/2018 HISTORY: chest pain COMPARISON: 09/18/2017 TECHNIQUE: Chest PA and lateral FINDINGS: LUNGS: No consolidation noted. PLEURA: No significant pleural effusion identified. No pneumothorax apparent. CARDIOVASCULAR: There is absence of aortic atherosclerotic calcification on x-ray. Borderline mild cardiomegaly with left ventricular enlargement configuration possible. Minimal pulmonary venous congestion slightly increased since prior exam suspect OSSEOUS STRUCTURES: Leftward convexity of the midthoracic spine mild-positional and/or minimal s scoliosis VISUALIZED UPPER ABDOMEN: Normal. OTHER FINDINGS: None. IMPRESSION: Borderline mild cardiomegaly with left ventricular enlargement configuration possible. Minimal pulmonary venous congestion slightly increased since prior exam suspect
--- NOTE | 2018-03-07 11:00 | CARD ---
APPROVED REPORT Date of service: 03/06/2018 EKG Measurement Heart [id number] <Conclusion> Normal sinus rhythm Borderline ECG
== END 2018-03-06 22:45 | disposition home or self-care (01) ==
LOC: C.ER 19:26
DX: R07.89 Other chest pain (principal)
CPT/HCPCS: 71046; 80053; 81001; 84484; 84703; 85025; 85378; 93005; 96374; 99284; J1885

== ENCOUNTER 2018-03-28 05:51 | Emergency (ER) | payer OTHER ==
[2018-03-28 05:52] VITALS: BMI 28.3
[2018-03-28 06:07] VITALS: BP 112/80; PULSE 93; RESP 24; TEMP 98.6; O2SAT 96
--- NOTE | 2018-03-28 06:36 | C.PDOC ---
History Of Present Illness 42 year old female presents to the ER with a complaint of cough, nasal congestion, and achiness. Denies fever or chills. Chief Complaint (Nursing): Cough, Cold, Congestion History Per: Patient History/Exam Limitations: no limitations Onset/Duration Of Symptoms: Hrs Current Symptoms Are (Timing): Still Present Location Of Pain: None Sick Contacts (Context): None Associated Symptoms: Cough, Myalgias, Nasal Congestion. denies: Fever, Chills Ear Symptoms: Bilateral: None Recent travel outside of the [place]: No Past Medical History Reviewed: Historical Data, Nursing Documentation, Vital Signs Vital Signs: Last Vital Signs Temp 98.6 F 03/28/18 06:04 Pulse 93 H 03/28/18 06:04 Resp 24 03/28/18 06:04 BP 112/80 03/28/18 06:04 Pulse Ox 96 03/28/18 06:04 - Medical History PMH: Depression, HTN - [facility] Procedures GROUP PSYCHOTHERAPY (11/25/17) INDIVID PSYCHOTHERAP NEC (09/22/13) INDIVIDUAL PSYCHOTHERAPY, SUPPORTIVE (11/25/17) MEDICATION MANAGEMENT (11/25/17) OTHER GROUP THERAPY (09/22/13) Family History: States: Unknown Family Hx - Social History Hx Tobacco Use: No Hx Alcohol Use: No Hx Substance Use: No - Immunization History Hx Tetanus Toxoid Vaccination: Yes Hx Influenza Vaccination: No Hx Pneumococcal Vaccination: No Review Of Systems Constitutional: Positive for: Fever ENT: Positive for: Nose Congestion Cardiovascular: Negative for: Chest Pain, Palpitations Respiratory: Negative for: Cough, Shortness of Breath Gastrointestinal: Negative for: Nausea, Vomiting Musculoskeletal: Positive for: Other (Body aches) Physical Exam - Physical Exam Appears: Non-toxic Skin: Normal Color, Warm, Dry Head: Atraumatic, Normacephalic Eye(s): bilateral: Normal Inspection Ear(s): Bilateral: Normal Nose: Normal Oral Mucosa: Moist Throat: Other (Minimally congested pharynx) Neck: Normal, Supple Chest: Symmetrical, No Tenderness Cardiovascular: Rhythm Regular Respiratory: Normal Breath Sounds, No Rales, No Rhonchi, No Wheezing Gastrointestinal/Abdominal: Soft, No Tenderness Neurological/Psych: Oriented x3, Normal Speech ED Course And Treatment O2 Sat by Pulse Oximetry: 96 (Room air) Pulse Ox Interpretation: Normal Progress Note: Tamiflu administered. Disposition - Disposition Referrals: [facility] at [facility] [Outside] Disposition: HOME/ ROUTINE Disposition Time: 06:25 Condition: STABLE Prescriptions: Oseltamivir Cap [Tamiflu] 75 mg PO BID #10 cap Instructions: Influenza (ED), Upper Respiratory Infection (ED) Forms: Gen Discharge Inst Togolese, [facility] (Azeri) Print Language: KOSOVAN - Clinical Impression Clinical Impression: Influenza-like illness - Scribe Statement The provider has reviewed the documentation as recorded by the Scribmarcus Watson All medical record entries made by the Scribe were at my direction and personally dictated by me. I have reviewed the chart and agree that the record accurately reflects my personal performance of the history, physical exam, medical decision making, and the department course for this patient. I have also personally directed, reviewed, and agree with the discharge instructions and disposition.
== END 2018-03-28 06:44 | disposition home or self-care (01) ==
LOC: C.ER 05:51
DX: J11.1 Influenza due to unidentified influenza virus with other respiratory manifestations (principal)

== ENCOUNTER 2018-03-31 14:14 | Emergency (ER) | payer OTHER ==
[2018-03-31 14:15] VITALS: BMI 28.3
--- NOTE | 2018-03-31 15:57 | C.PDOC ---
History Of Present Illness 42 year old female presents to the emergency department with complaints of URI symptoms, cough, and congestion for the last two weeks. Patient denies fever, sore throat, or recent travel. Patient was seen 5 days ago and treated with Tamiflu. Time Seen by Provider: 03/31/18 15:05 Chief Complaint (Nursing): Cough, Cold, Congestion History Per: Patient History/Exam Limitations: no limitations Onset/Duration Of Symptoms: Days (5) Current Symptoms Are (Timing): Still Present Associated Symptoms: Cough, Nasal Congestion Past Medical History Reviewed: Historical Data, Nursing Documentation, Vital Signs Vital Signs: Last Vital Signs Temp 98.3 F 03/31/18 14:36 Pulse 76 03/31/18 14:36 Resp 18 03/31/18 14:36 BP 121/84 03/31/18 14:36 Pulse Ox 96 03/31/18 14:36 - Medical History PMH: Depression, HTN Surgical History: No Surg Hx - [facility] Procedures GROUP PSYCHOTHERAPY (11/25/17) INDIVID PSYCHOTHERAP NEC (09/22/13) INDIVIDUAL PSYCHOTHERAPY, SUPPORTIVE (11/25/17) MEDICATION MANAGEMENT (11/25/17) OTHER GROUP THERAPY (09/22/13) Family History: States: No Known Family Hx - Social History Hx Tobacco Use: No Hx Alcohol Use: No Hx Substance Use: No - Immunization History Hx Tetanus Toxoid Vaccination: Yes Hx Influenza Vaccination: No Hx Pneumococcal Vaccination: No Review Of Systems Except As Marked, All Systems Reviewed And Found Negative. ENT: Positive for: Nose Congestion Respiratory: Positive for: Cough Physical Exam - Physical Exam Appears: Non-toxic, No Acute Distress Skin: Normal Color, Warm, Dry Head: Atraumatic, Normacephalic Eye(s): bilateral: Normal Inspection, PERRL, EOMI Nose: Normal Oral Mucosa: Moist Neck: Normal, Supple Chest: Symmetrical, No Tenderness Cardiovascular: Rhythm Regular, No Murmur Respiratory: Normal Breath Sounds, No Rales, No Rhonchi, No Wheezing Neurological/Psych: Oriented x3, Normal Speech, Normal Cognition ED Course And Treatment O2 Sat by Pulse Oximetry: 96 (RA) Pulse Ox Interpretation: Normal Medical Decision Making Medical Decision Making: Plan: Motrin 600mg PO Zithromax 500mg PO POC Urine Assessment: Bronchitis Disposition Counseled Patient/Family Regarding: Diagnosis, Need For Followup, Rx Given - Disposition Referrals: Ghazal Orozco MD [Medical Doctor] - Disposition: HOME/ ROUTINE Disposition Time: 15:55 Condition: STABLE Additional Instructions: follow up with your doctor within 2 days call to make an appointment take medications as prescribed return to ER if symptoms worsens or progress Prescriptions: Azithromycin [Zithromax] 250 mg PO DAILY #4 tab Benzonatate [Tessalon Perles] 100 mg PO BID PRN #14 tab PRN Reason: Cough Naproxen [Naprosyn] 500 mg PO BID PRN #16 tab PRN Reason: Pain, Moderate (4-7) Instructions: Acute Bronchitis, Adult (DC) Forms: Gen Discharge Inst Romanian, [employer] (Romanian) Print Language: MONTSERRATIAN - Clinical Impression Clinical Impression: Bronchitis - Scribe Statement The provider has reviewed the documentation as recorded by the Scribe (Devon Austin) Provider Attestation: All medical record entries made by the Scribe were at my direction and personally dictated by me. I have reviewed the chart and agree that the record accurately reflects my personal performance of the history, physical exam, medical decision making, and the department course for this patient. I have also personally directed, reviewed, and agree with the discharge instructions and disposition.
[2018-03-31 16:15] VITALS: BP 142/81; PULSE 73; RESP 20; TEMP 99.6
[2018-03-31 18:08] VITALS: O2SAT 96
== END 2018-03-31 16:15 | disposition home or self-care (01) ==
LOC: C.ER 14:14
DX: J40 Bronchitis, not specified as acute or chronic (principal)

== ENCOUNTER 2018-06-11 23:15 | Emergency (ER) | payer OTHER ==
[2018-06-11 23:15] VITALS: BMI 28.3
[2018-06-11 23:34] VITALS: BP 121/69; PULSE 80; RESP 18; TEMP 97.6; O2SAT 99
--- NOTE | 2018-06-12 01:07 | C.PDOC ---
History Of Present Illness 42 year old female tripped and fell while at work today and hit her right knee. Patient complaints of pain to the right knee and upper thigh. Denies weakness or numbness. Time Seen by Provider: 06/11/18 23:46 Chief Complaint (Nursing): Lower Extremity Problem/Injury History Per: Patient History/Exam Limitations: no limitations Onset/Duration Of Symptoms: Hrs Current Symptoms Are (Timing): Still Present Recent travel outside of the [place]: No - Knee Description Of Injury: Fell Past Medical History Reviewed: Historical Data, Nursing Documentation, Vital Signs Vital Signs: Last Vital Signs Temp 97.6 F 06/11/18 23:32 Pulse 80 06/11/18 23:32 Resp 18 06/11/18 23:32 BP 121/69 06/11/18 23:32 Pulse Ox 99 06/11/18 23:32 - Medical History PMH: Depression, HTN - [facility] Procedures GROUP PSYCHOTHERAPY (11/25/17) INDIVID PSYCHOTHERAP NEC (09/22/13) INDIVIDUAL PSYCHOTHERAPY, SUPPORTIVE (11/25/17) MEDICATION MANAGEMENT (11/25/17) OTHER GROUP THERAPY (09/22/13) Family History: States: Unknown Family Hx - Social History Hx Tobacco Use: No Hx Alcohol Use: No Hx Substance Use: No - Immunization History Hx Tetanus Toxoid Vaccination: Yes Hx Influenza Vaccination: No Hx Pneumococcal Vaccination: No Review Of Systems Musculoskeletal: Positive for: Other (Right knee pain) Neurological: Negative for: Weakness, Numbness Physical Exam - Physical Exam Appears: Non-toxic Skin: Warm Head: Atraumatic, Normacephalic Eye(s): bilateral: Normal Inspection Extremity: Normal ROM (x4), No Calf Tenderness, Capillary Refill (<2 seconds), Other (Minimal tenderness and erythema to right knee. Right thigh and tibial lane normal.) Pulses: Left Dorsalis Pedis: Normal, Right Dorsalis Pedis: Normal Neurological/Psych: Oriented x3, Normal Speech, Normal Motor, Normal Sensation Gait: Steady ED Course And Treatment O2 Sat by Pulse Oximetry: 99 (Room air) Pulse Ox Interpretation: Normal - Other Rad Right knee x-ray X-Ray: Interpreted by Me, Viewed By Me Interpretation: No acute fracture or dislocation. Progress Note: Right knee x-ray ordered, results were negative. Motrin administered. Patient is ambulatory in the ER with steady gait, VEENA wrap applied. vitals are stable, will discharge home with instructions to follow up with PMD. Disposition Counseled Patient/Family Regarding: Diagnosis, Need For Followup, Rx Given - Disposition Referrals: 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 - Scribe Statement The provider has reviewed the documentation as recorded by the Scribmarcus Watson All medical record entries made by the Chikisibmarcus were at my direction and personally dictated by me. I have reviewed the chart and agree that the record accurately reflects my personal performance of the history, physical exam, medical decision making, and the department course for this patient. I have also personally directed, reviewed, and agree with the discharge instructions and disposition.
--- NOTE | 2018-06-12 11:19 | RAD ---
Date of service: 06/12/2018 PROCEDURE: Right Knee Radiographs. HISTORY: pain, fall COMPARISON: None. TECHNIQUE: Three views obtained. FINDINGS: BONES: Bone alignment and mineralization are normal. There is no acute displaced fracture or bone destruction. JOINTS: There is mild degenerative osteoarthrosis in the medial compartment with narrowing of the joint space and marginal spurring. JOINT EFFUSION: There is a small suprapatellar joint effusion. OTHER FINDINGS: None. IMPRESSION: No acute fracture or dislocation. 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
== END 2018-06-12 01:15 | disposition home or self-care (01) ==
LOC: C.ER 23:15
DX: S89.91XA Unspecified injury of right lower leg, initial encounter (principal); W01.0XXA Fall on same level from slipping, tripping and stumbling without subsequent striking against object, initial encounter; Y92.89 Other specified places as the place of occurrence of the external cause; Y99.0 Civilian activity done for income or pay